=== PATIENT | female | born 1960 | race Caucasian/White ===

== ENCOUNTER 2021-05-16 00:09 | Day surgery (SDC) | payer OTHER, SELFPAY ==
[2021-05-02 12:26] VITALS: BMI 32.7
[2021-05-16 08:53] VITALS: BP 112/86; PULSE 91; RESP 18; TEMP 36.1; O2SAT 97; BMI 31.6
--- NOTE | 2021-05-16 08:57 | P.PNAN_ITS ---
Anes - Initial Pre Proc Eval Procedure: Operation Date: 05/16/21 09:00 Proposed Procedures p Screening Colonoscopy - Wero Reyes MD Date/Time: 05/16/21 08:57 Surgeon: Wero Reyes MD Pre Op Diagnosis: neoplasm screening Patient Data Age: 60 Gender: F Height: 1.77 m Weight: 98.4 kg Last Vital Signs Temp 36.1 C L 05/16/21 08:53 Pulse 91 05/16/21 08:53 Resp 18 05/16/21 08:53 BP 112/86 05/16/21 08:53 Pulse Ox 97 05/16/21 08:53 Allergies Allergy/AdvReac Type Severity Reaction Status Date / Time No Known Allergies Allergy Verified 05/16/21 08:52 Home Medications Medication Instructions Recorded Confirmed Type citalopram 40 mg PO DAILY 05/02/21 05/16/21 History levothyroxine 88 mcg PO DAILY 05/02/21 05/16/21 History Patient hx anesthesia problems: none Family hx anesthesia problems: none Results Review: All pre-operative results and documents have been reviewed as part of the pre-operative evaluation. [facility] Past Medical History Medical History (Updated 05/16/21 @ 09:00 by Davian Campbell MD) Depression Hypothyroidism Obesity Pericardial effusion Surgical History Surgical History (Updated 05/16/21 @ 09:00 by Davian Campbell MD) H/O colonoscopy Social History Social History Smoking status: Never smoker Alcohol intake: never Substance use: never Substance use type: does not use Living arrangements: alone Spiritual care concerns: No Anes - Eval Final PreProcedure Day of Procedure 05/16/21 08:57 Patient weight: obese Heart: regular rate and rhythm Lungs: clear to auscultation Airway: Mallampati scale class II Neurological: alert and oriented Last oral intake: >/= 8 hours ASA classification: II Emergent: no Anesthetic plan: proceed Anesthesia type and monitoring: general GIVS and standard monitoring Results Review: All pre-operative results and documents have been reviewed as part of the pre-operative evaluation. Informed Consent: The patient's anesthetic plan and its attendant risks and benefits were discussed with the patient/family/POA. Questions were solicited and answers provided to the satisfaction of the patient/family/POA.
--- NOTE | 2021-05-16 09:01 | WPDGICN ---
Assessment and Plan Assessment and plan (1) Encounter for screening colonoscopy: Code(s): Z12.11 - Encounter for screening for malignant neoplasm of colon Status: Acute Assessment and Plan: Patient presents for screening colonoscopy. Appears to be at average risk for colon polyps. GI Consult Note Consult date/time: 05/16/21 09:01 HPI: Noreen Allred is a 60 year old female Presents for screening colonoscopy. Patient's current weight appetite and bowel movements are normal. She denies abdominal pain. She has had no bleeding per. Family history is noncontributory. Patient's last colonoscopy 10 years ago was unremarkable. Review of Systems Review of Systems: All systems reviewed & are unremarkable except as noted in HPI and below PMFSH Past Medical History Medical History (Updated 05/16/21 @ 09:02 by Wero Reyes MD) Depression Hypothyroidism Obesity Pericardial effusion Surgical History Surgical History (Updated 05/16/21 @ 09:00 by Davian Campbell MD) H/O colonoscopy Social History Social History Smoking status: Never smoker Alcohol intake: never Substance use: never Substance use type: does not use Living arrangements: alone Spiritual care concerns: No Meds Home Medications and Allergies Home Medications Medication Instructions Recorded Confirmed Type citalopram 40 mg PO DAILY 05/02/21 05/16/21 History levothyroxine 88 mcg PO DAILY 05/02/21 05/16/21 History Allergies Allergy/AdvReac Type Severity Reaction Status Date / Time No Known Allergies Allergy Verified 05/16/21 08:52 Vital Signs Vital Signs - 24 hr 05/16/21 08:53 Temperature 96.9 F L Pulse Rate 91 Respiratory Rate 18 Blood Pressure 112/86 Pulse Oximetry 97 Exam Narrative: Physical exam reveals patient be alert. Vital signs stable. HEENT exam is unremarkable. Patient is anicteric. Lungs are clear to auscultation and percussion. Heart is without murmur or extra sounds. Abdominal exam bowel sounds present soft nontender with no organomegaly. Digital external rectal exam is normal.
[2021-05-16] MEDS: LACTATED RINGERS 1,000 ML 150 ML IV CONT (09:04)
[2021-05-16 09:46] VITALS: BP 100/48; PULSE 78; RESP 16; O2SAT 98
[2021-05-16 09:56] VITALS: BP 96/56; PULSE 96; RESP 16; O2SAT 99
[2021-05-16 10:06] VITALS: BP 100/56; PULSE 62; RESP 18; O2SAT 99
== END 2021-05-16 10:27 | disposition home or self-care (01) ==
PROVIDERS: PCP Family Medicine; Visit Provider Internal Medicine Gastroenterology
PROC: 0DJD8ZZ Inspection of Lower Intestinal Tract, Via Natural or Artificial Opening Endoscopic (ICD-10-PCS; CPT 45378; principal; 2021-05-16 09:00)
DX: Z12.11 Encounter for screening for malignant neoplasm of colon (principal); K64.8 Other hemorrhoids; E03.9 Hypothyroidism, unspecified; I31.3 Pericardial effusion (noninflammatory); F32.9 Major depressive disorder, single episode, unspecified; E66.9 Obesity, unspecified; Z68.31 Body mass index [BMI] 31.0-31.9, adult
CPT/HCPCS: 45378; J2001; J2704; J7120

== ENCOUNTER 2023-05-23 13:40 | Outpatient (CLI) | payer OTHER, SELFPAY ==
--- NOTE | ~2023-05-23 | MM_ITS ---
EXAMINATION: MM screening [facility] BI w francis HISTORY: Screening mammogram TECHNIQUE: Craniocaudal and mediolateral oblique 3-D tomosynthesis images were obtained and synthetic 2-D images were generated. CAD analysis was submitted and interpreted. COMPARISON: 06/13/2018, 09/15/2008 BREAST PARENCHYMAL COMPOSITION: There are scattered areas of fibroglandular density. FINDINGS: No suspicious mass, calcification, or architectural distortion are identified in either debbie ast to suggest malignancy. There has been no suspicious interval change. IMPRESSION: 1. No mammographic evidence of malignancy. 2. Recommend routine screening mammography in one year. BI-RADS Category 1: Negative Reviewed, dictated and finalized at location A. INTERN
== END 2023-05-23 13:41 | disposition home or self-care (01) ==
LOC: CHSIMG 13:41
PROVIDERS: PCP Family Medicine; Visit Provider Family Medicine
DX: Z12.31 Encounter for screening mammogram for malignant neoplasm of breast (principal)
CPT/HCPCS: 77063; 77067

== ENCOUNTER 2023-07-03 13:15 | Outpatient (CLI) | payer OTHER, SELFPAY ==
--- NOTE | ~2023-07-03 | DEXA_ITS ---
Bone Density Report Name: BARBARA BAILEY Age: 63 Sex: Female Ethnicity: White Date of : 1960 Indication: postmenopausal; screening for osteoporosis; Referring Provider: BANDAR RAY Study: Bone densitometry was performed. Exam Date: July 03, 2023 Accession number: [id number] Bone Density: Region BMD T-score Z-score Classification AP Spine(L1-L4) 0.999 -0.4 1.3 Normal Femoral Neck (Left) 0.912 0.6 2.0 Normal Total Hip (Left) 0.979 0.3 1.5 Normal Femoral Neck (Right) 0.897 0.4 1.9 Normal Total Hip (Right) 0.937 0.0 1.1 Normal Femoral Neck Mean 0.904 0.5 2.0 Normal Total Hip Mean 0.958 0.1 1.3 Normal World Health Organization criteria for BMD impression classify patients as: Normal (T-score at or above -1.0), Osteopenia (T-score between -1.0 and -2.5), or Osteoporosis (T-score at or below -2.5). 10-year Fracture Risk: FRAX not reported because: All T-scores for Spine Total, Hip Total, Femoral Neck at or above -1.0 Clinical Information Provided by Patient: Patient maximum height was 69.5 Menopause Age: 43 No regular weight bearing exercise Onset of menses at age 13 Number of children 2 Impression: The patient has normal bone mass. Discussion: BONE DENSITY IS ABOVE THE MINIMUM DESIRABLE LEVEL AT ALL SKELETAL SITES TESTED. This patient?s bone mineral density is above the minimum desirable level (T-score -1.0 or better) at all sites measured. The patient should follow a healthful lifestyle (good nutrition with adequate calcium and vitamin D, and appropriate weight-bearing exercise). Follow-Up: Consider repeating this study in 5 years or sooner if there is some new clinical indication. Reported by: Dr. Jose Manuel Hackett on 07/03/2023 1:58:00 PM. Reviewed, dictated and finalized at location A.
== END 2023-07-03 13:16 | disposition home or self-care (01) ==
LOC: CHSIMG 13:19
PROVIDERS: PCP Family Medicine; Visit Provider Advanced Practice Midwife
DX: Z78.0 Asymptomatic menopausal state (principal)
CPT/HCPCS: 77080

== ENCOUNTER 2024-06-04 12:29 | Outpatient (CLI) | payer MEDICARE, SELFPAY ==
--- NOTE | ~2024-06-04 | MM_ITS ---
EXAMINATION: MM screening [facility] BI w francis HISTORY: Screening TECHNIQUE: Craniocaudal and mediolateral oblique 3-D tomosynthesis images were obtained and synthetic 2-D images were generated. CAD analysis was submitted and interpreted. COMPARISON: Comparison to multiple prior studies sequentially, with oldest reviewed study dated 06/13. BREAST PARENCHYMAL COMPOSITION: Not dense: There are scattered areas of fibroglandular density. FINDINGS: There is no evidence of suspicious mass, calcification, or architectural distortion to sugg est malignancy in either breast. There has been no suspicious interval change. IMPRESSION: 1. No mammographic evidence of malignancy. 2. Recommend routine screening mammography in one year. BI-RADS Category 1: Negative Reviewed, dictated and finalized at location B. ONAL DEVELOPMENT EDUCATOR
--- OUTSIDE RECORDS SUMMARY | 2024-06-04 13:34 | XMS_ITS | Clinical Summary ---
Author Organization [facility] Address [address] [place] [address] Care Team Providers Care Special Education Administrator Name Role Phone Kasi Golden MD Primary Care Provider [phone] Allergies No known active allergies Medications ciprofloxacin- dexAMETHasone (CIPRODEX) otic suspension Administer 4 drops into the left ear 2 (two) times a day 7.5 mL 02/11/20 24 Active levothyroxine (SYNTHROID) 88 mcg tablet TAKE 1 TABLET (88 MCG TOTAL) BY MOUTH EVERY OTHER DAY 90 tablet 1 05/05/19 25 Active citalopram (CeleXA) 40 mg tabletIndicati ons:PUNEET (generalized anxiety disorder) TAKE 1 TABLET BY MOUTH EVERY OTHER DAY 50 tablet 05/14/19 25 Active citalopram (CeleXA) 40 mg tabletIndicati ons:PUNEET (generalized anxiety disorder) Take 1 tablet (40 mg total) by mouth every other day 45 tablet 3 05/16/19 24 025 Discontinued Active Problems Problem Noted Date Diagnosed Date Multinodular goiter 05/16/2023 Osteoarthritis 05/16/2023 Hyperlipidemia 05/16/2023 PUNEET (generalized anxiety disorder) 01/21/2019 Assessment & Plan (01/21/2019 4:49 AM CDT): Citalopram has been resumed Hypothyroid 01/21/2019 Assessment & Plan (01/21/2019 4:49 AM CDT): Levothyroxine has been resumed Resolved Problems Problem Noted Date Diagnosed Date Resolved Date Urticaria due to drug allergy 04/28/2021 04/12/2022 Drug reaction 04/27/2021 04/12/2022 COVID 04/05/2021 05/16/2023 Gallstone pancreatitis 07/07/201903/02 Assessment & Plan (07/15/2019 8:50 AM CDT): Two episodes of sharp bilateral upper abdominal pain below breasts. Both episodes lasted about 5 minutes. Pt was taken to [place] [facility] via ambulance and they found mildly elevated AST and elevated lipase. CT of abdomen with contrast done and was overall unremarkable. Pt says pain stopped that same day and feeling back to normal. Likely had acute pancreatitis from stone that has passed. Will recheck hepatic function panel and lipase at beginning of next week to ensure lipase levels are trending down. We discussed what s/s to look out for further stone in bile ducts and if very severe, go to ER. Pt verbalized understanding. Encounter for removal of biliary stent 02/13/2019 03/02/2021 Overview (02/13/2019): Added automatically from request for surgery [id number] Choledocholithiasis 02/13/2019 03/02/20 Assessment & Plan (02/13/2019 2:08 PM CDT): Pt is doing well post ERCP. No signs of pancreatitis. She is asymptomatic. Pt had stent placed during ERCP. She will be scheduled for repeat ERCP in beginning of February to have stent removed. We will schedule this today. Elevated liver enzymes 02/13/201903/02 Assessment & Plan (07/15/2019 8:51 AM CDT): Mildly elevated AST. Bilirubin normal. Lipase elevated. These labs were done Sunday, 07/04 at [place] [facility] (patient brought in lab results). Will repeat labs early next week to ensure normal LFT's and lipase trending down. Assessment & Plan (02/13/2019 2:07 PM CDT): Last hepatic function panel was done 01/22 and still elevated. We will repeat these to make sure her levels have come down. Acute cholecystitis 01/21/2019 03/02/20 Assessment & Plan (01/21/2019 4:49 AM CDT): Continue p.r.n. Pain medications. Continue Rocephin and Flagyl. Surgery has been consulted and patient is scheduled for lap jojo today. NPO. Calculus of gallbladder with acute cholecystitis without obstruction 01/20/20192020 Overview (01/21/2019): Added automatically from request for surgery [id number] Assessment & Plan (01/30/2019 8:52 AM CDT): GAGAN output has remained serous. This will be removed at the bedside today. From surgical standpoint no submerging incisions for 4 weeks. No heavy lifting greater than 20 lb for 4 weeks. She is set to see GI later this month to set her back up for stent removal. She will call us back for any further questions or concerns. Abdominal pain 03/02/2021 Assessment & Plan (07/07/2019 3:32 PM CDT): Two episodes of sharp upper abdominal pain that both lasted about 5 minutes. Pt says the pain stopped Sunday once she got to ER. No further abdominal pain since then. Immunizations Name Administration Dates Next Due Influenza, Quadrivalent, [place] l Culture-based MDCK, Preservative Free, Antibiotic Free, Intramuscular 02/17/2021,02/08/2019 Influenza, Quadrivalent, Spl it, Preservative Free, Intramuscular 02/05/2023,03/08/2022,02/20/2020,01/15 Influenza, Trivalent, Cell Culture-based MDCK, Preservative Free, Antibiotic Free, Intramuscular 02/10/2024 Influenza, Trivalent, IM (MDV) 01/16/2017,2013,04/11/2012 Influenza, Trivalent, Preser vative Free, Intramuscular 01/18/2016,03/16/2015 Influenza, Unspecified 01/28/2021,01/29/2020 ZOSTER Recombinant 07/18/2020,02/20/2020 Surgical History Surgery Date Site/Laterality Comments KNEE SURGERY 04/30/2017 - 04/29/2018 Left CHOLECYSTECTOMY 01/21/2019 ERCP W/ PLASTIC STENT PLACEMENT 01/21/2019 Gallstones with stent placement Medical History Medical History Date Comments Hypothyroidism Depression Anxiety Pericarditis 2006 Cancer (CMS/HCC) (HCC) skin canc er Vertigo Family History Medical History Relation Name Comments Cancer Father Cancer Mother Awilda Relation Name Status Comments Father Mother Awilda Social History Tobacco Use Types Packs/Day Years Used Date Smoking Tobacco: Never Cigarettes Smokeless Tobacco: Never Tobacco Cessation:Counseling Given: Not Answered Alcohol Use Standard Drinks/Week Comments Not Currently 0 (1 standard drink = 0.6 oz pur e alcohol) PHQ-2 Answer Date Recorded PHQ-2 Total Score (If total score is 3 or more points, staff should administer the PHQ-9) 0 05/16/2023 Comments No Sex and Gender Information Value Date Recorded Sex Assigned at Not on file 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 Gender Identity Not on file Sexual Orientation Not on file Obstetrics History Last Filed Vital Signs Vital Sign Reading Time Taken Comments Blood Pressure 118/72 02/11/2024 10:41 AM CDT Pulse 78 02/11/2024 10:41 AM CDT Temperature 36.3 ??C (97.4 ??F) 02/11/2024 1 0:41 AM CDT Respiratory Rate 18 02/11/2024 10:4 1 AM CDT Oxygen Saturation 96% 02/11/2024 10: 41 AM CDT Inhaled Oxygen Concentration - - Weight 102.9 kg (226 lb 12.8 oz) 2023 10:41 AM CDT Height 175.3 cm (5' 9 ) 02/11/2024 10:4 1 AM CDT Body Mass Index 33.49 02/11/2024 10:41 AM CDT Plan of Treatment Health Maintenance Due Date Last Done Comments Cervical Cancer Screening 1960 Hepatitis C Screening 1960 Osteoporosis Screening-Bone Density Scan 1960 DTaP/Tdap/Td Vaccine (1 - Tdap) 1970 Hepatitis B Screening 1977 Fall Risk Assessment 04/27/2022 04/27/2021, 03/02/2021, 02/13/2019 Depression Screening 05/16/2024 05/16/2023, 04/27/2021, 03/02/2021, Additional history exists Breast Cancer Screening-Mammogram 2024 024 Pneumococcal vaccine 65+ (1 of 1 - PCV) 2024 Well Visit 65+ 02/10/2025 02/11/2024, 03/02/2021 Colon Cancer Screening-Colonoscopy 05/16/2031 05/16/2021 Zoster Vaccine Completed 07/18/2020, 02/20/2020 Colon Cancer Screening-CT Colonography Discontinued 05/16/2021 Colon Cancer Screening-DNA Stool Discontinued 05/16/19 Colon Cancer Screening-FIT Discontinued 05/16/2021 Colon Cancer Screening-Sigmoidoscopy Discontinued 05/16/2021 Influenza Vaccine Completed 02/10/2024, , 03/08/2022, Additional history exists Procedures Procedure Name Priority Date/Time Associated Diagnosis Comments SCREENING MAMMOGRAM BILATERAL W PAVEL Schedule Routine, Read Routine (OP Routine) 2023 Encounter for screening mammogram for malignant neoplasm of breast COLONOSCOPY Routine 05/16/2021 from Last 3 Months or Most Recently Relevant to Health Maintenance Results * SCREENING MAMMOGRAM BILATERAL W PAVEL (2023) Anatomical Region Laterality Modality Breast Bilateral Mammography Brooke Thompson IMG MAMMO PROCEDURES Fin al Result * Colonoscopy (05/16/2021) Anatomical Region Laterality Modality Other Historical Provider MD ENDOSCOPY PROCEDURES Elba l Result from Last 3 Months or Most Recently Relevant to Health Maintenance Insurance [facility] CHOICE PLUS ANTHEM ACCESS Member Subscriber Plan / Payer (Ef fective 2017-Present) Name:Noreen Bailey Relation to Subscriber:Self Name:Noreen Bailey Payer ID:[id number] (NA) Type:[facility] Address: [address] CHOICE PLUS [facility] CHOICE PLUS Advance Directives For more information, please contact: [phone] * Full Code (Latest Code Status on File) Date Activated Date Inactivated Comments 01/22/2019 5:09 PM 01/23/2019 10:48 PM * Full Code Date Activated Date Inactivated Comments 01/20/2019 7:00 PM 01/22/2019 5:09 PM Care Teams Special Education Administrator Relationship Specialty Start Date End Date Kasi Golden MD PCP - General Family Medicine 03/02/21
--- OUTSIDE RECORDS SUMMARY | 2024-06-04 13:34 | XMS_ITS | Referral Summary ---
Author Organization [facility] Address [address] [place] [address] Care Team Providers Care Trustee Of Estate Name Role Phone Kasi Golden MD Primary Care Provider [phone] Allergies No known active allergies Medications ciprofloxacin- [...] about 5 minutes. Pt was taken to [place] ER via ambulance and they found mildly [...] (02/13/2019): Added automatically from request for surgery [id number] Choledocholithiasis 02/13/2019 03/02/20 Assessment & Plan (02/13/2019 [...] These labs were done Sunday, 07/04 at [place] ER (patient brought in lab results). 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 Gender Identity Not on file Sexual Orientation Not on file Last Filed Vital Signs Vital Sign Reading [...] 02/11/2024 10:41 AM CDT Plan of Treatment Not on file Procedures Procedure Name Priority Date/Time Associated Diagnosis Comments SCREENING MAMMOGRAM BILATERAL W PAVEL Schedule Routine, Read Routine (OP Routine) 2023 Encounter for screening mammogram for malignant neoplasm of breast COLONOSCOPY Routine 05/16/2021 from Last 3 Months or Most Recently Relevant to Health Maintenance Results * SCREENING MAMMOGRAM BILATERAL W PAVEL (2023) Anatomical Region Laterality Modality Breast Bilateral Mammography Brooke Thompson IMTorie MAMMO PROCEDURES Fin al Result * Colonoscopy (05/16/2021) Anatomical Region Laterality Modality Other Historical Provider ENDOSCOPY PROCEDURES Elba l Result from Last 3 Months or Most Recently Relevant to Health Maintenance Insurance [facility] CHOICE PLUS [facility] H[facility]/PPO Address: [address] [address] [place] [id number] ANTHEM ACCESS Member Subscriber Plan / Payer ( fective 2017-Present) Name:Noreen Bailey Relation to Subscriber:Self Name:Noreen Bailey Payer ID:[id number] (NAIC) Type:[facility] Address: [address] CHOICE PLUS [facility] H[facility]/PPO Address: [address] [address] [place] [phone] [facility] CHOICE PLUS [facility]/PPO Address: [place] [address] Advance Directives For more information, please contact: [phone] * Full Code (Latest Code Status on File) Date Activated Date Inactivated Comments 01/22/2019 5:09 PM 01/23/2019 10:48 PM * Full Code Date Activated Date Inactivated Comments 01/20/2019 7:00 PM 01/22/2019 5:09 PM Care Teams Trustee Of Estate Relationship Specialty Start Date End Date Kasi Golden MD PCP - General Family Medicine 03/02/21
== END 2024-06-04 12:30 | disposition home or self-care (01) ==
LOC: CHSIMG 12:35
PROVIDERS: PCP Family Medicine; Visit Provider Advanced Practice Midwife
DX: Z12.31 Encounter for screening mammogram for malignant neoplasm of breast (principal)
CPT/HCPCS: 77063; 77067